=== PATIENT | female | born 1975 | race Caucasian/White ===

== ENCOUNTER → 2017-09-23 | Outpatient (CLI) | payer OTHER ==
--- NOTE | 2017-09-23 15:45 | MAMMOGRAPHY REPORT ---
BILATERAL FIRST EVER DIGITAL SCREENING MAMMOGRAM TOMOSYNTHESIS WITH CAD: 09/23/2017 CLINICAL HISTORY: Routine screening. Baseline exam. TECHNIQUE: Breast tomosynthesis in addition to standard 2D mammography was performed. Current study was also evaluated with a Computer Aided Detection (CAD) system. COMPARISON: No prior exams were available for comparison. BREAST COMPOSITION: There are scattered areas of fibroglandular density in both breasts. FINDINGS: No suspicious masses, calcifications, or areas of architectural distortion are noted in ei ther breast. Scattered bilateral punctate benign-appearing calcifications are noted. IMPRESSION: ACR BI-RADS CATEGORY 2: BENIGN There is no mammographic evidence of malignancy. A 1 year screening mammogram is recommended. The pa tient will receive written notification of the results. Approximately 10% of breast cancers are not detected with mammography. A negative mammographic report should not delay biopsy if a clinically suggestive mass is present. Peyton Machado M.D. ah/:09/23/2017 14:53:26 Attending Technologist: Uma Huerta, [facility] Ticket Printer And Tagger: Nestor ACUÑA(R)(M), [facility] letter sent: Normal 1/2 BI-RADS Code: ACR BI-RADS Category 2: Benign
== END | disposition home or self-care (01) ==
LOC: C.MAMM 14:03
PROVIDERS: ATTEND Obstetrics & Gynecology
DX: Z12.31 Encounter for screening mammogram for malignant neoplasm of breast (principal)

== ENCOUNTER 2019-02-17 10:49 | Inpatient (IN) ==
[2019-02-17] MEDS ORDERED: SODIUM CHLORIDE 0.9% 1000ML 500 ML IV ONE (12:21)
[2019-02-17 13:47] LABS: Hematocrit (blood only) 42.1 % (37-47); Hemoglobin 14.9 g/dL (12.0-16.0); Mean Corpuscular Hgb Conc 35.4 g/dL (32-36); Mean Corpuscular Volume 93.1 fL (80-100); Mean Platelet Volume 9.8 fL (7.4-10.4); Platelet Count 209 K/uL (130-400); RDW Coefficient of Variation 13.7 % (11.5-14.5); RDW Standard Deviation 46.3 fL (36.4-46.3); Red Blood Count 4.52 M/uL (4.2-5.4); White Blood Count 20.58 K/uL (4.8-10.8)
[2019-02-17] MEDS ORDERED: CEFEPIME 2,000 MG/20 ML VIAL IV STA (13:53)
[2019-02-17] MEDS ORDERED: VANCOMYCIN HCL 1,750 MG in SODIUM CHLORIDE 0.9% 500 ML IV ONE (13:53)
[2019-02-17] MEDS ORDERED: SODIUM CHLORIDE 0.9% 1000ML 1,000 ML IV ONE (13:53)
[2019-02-17] MEDS ORDERED: VANCOMYCIN CONSULT ACTIVE PRN (13:53)
[2019-02-17 14:00] LABS: INR 2.6 (0.9-1.1); Partial Thromboplastin Ratio 1.3; Partial Thromboplastin Time 35.6 Seconds (21.0-31.0); Prothrombin Time 25.1 Seconds (9.0-12.0)
--- NOTE | 2019-02-17 14:13 | Ultrasound Report ---
LEFT LOWER EXTREMITY VENOUS DOPPLER HISTORY: left leg swelling erythema COMPARISON STUDY: Venous Doppler 09/29/2018. FINDINGS: No change in the linear echogenic stranding within the left common femoral vein and poplite al vein consistent with chronic DVT. This is nonocclusive. No acute DVT within the left lower extremi ty. IMPRESSION: 1. Stable nonocclusive chronic DVT within the left common femoral and popliteal veins. 2. No acute DVT within the left lower extremity. Electronically signed by: Carroll Eckert M.D. 02/17/2019 2:12 PM
[2019-02-17 14:24] LABS: Basophils # (auto) 0.04 K/uL (0-0.2); Basophils % (auto) 0.2 %; Immature Granulocytes # (auto) 0.09 K/uL (0.00-0.02); Immature Granulocytes % (auto) 0.4 %; Lymphocytes # (auto) 0.35 K/uL (1.2-3.4); Lymphocytes % (auto) 1.7 %; Monocytes # (auto) 0.49 K/uL (0.11-0.59); Monocytes % (auto) 2.4 %; Neutrophils # (auto) 19.61 K/uL (1.4-6.5); Neutrophils % (auto) 95.3 %
[2019-02-17 14:47] LABS: Appearance Urine Clear (Clear); Bilirubin Urine Negative (Negative); Color Urine Yellow; Glucose Urine UA Negative (Negative); Ketones Urine Negative (Negative); Leukocyte Esterase Urine Negative (Negative); Nitrite Urine Negative (Negative); Protein Urine Negative (Negative); Specific Gravity Urine 1.017 (1.000-1.030); Urobilinogen Urine Negative (Negative)
[2019-02-17 14:54] LABS: Calcium 8.4 mg/dl (8.5-10.1); Creatinine Clr Calc Pharmacy 73.1 ml/min; Est GFR (African American) 94.6; Est GFR (Non-African American) 81.6; Potassium 3.5 mmol/L (3.5-5.1)
--- NOTE | 2019-02-17 15:36 | History & Physical Report ---
Date of Service February 17, 2019 Assessment & Plan (1) Cellulitis: Patient start on vancomycin and cefepime this will be maintained in the ER blood cultures will be obtained the area was demarcated with a skin marker, white count will be followed (2) DVT, lower extremity, recurrent: Patient's INR is therapeutic this time she will be maintained on warfarin 5 mg a day this will be a therapy treatment and DVT prevention same time (3) Heart murmur: Patient is a heart murmur heard an echocardiogram will be performed (4) Dyslipidemia: Pravachol be continued (5) PMDD (premenstrual dysphoric disorder): Patient is on Depo-Provera and Topamax plus fluoxetine History of Present Illness Primary Care Provider: Logan Leung MD Patient presents with rapidly accelerated erythema to her left lower leg. 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 Reportedly the patient was in her normal state of health and last evening she cleaned she did not feel good she had some tachypnea she had no fever at home according to her mother and she really has some mild redness on the dorsum of her foot. Her feelings of shortness of breath and not feeling well resolved with her foot erythema spread rapidly now is senior living up her thigh. She has no recent trauma traumatic events there is no significant open areas although she does have lymphedema to that leg. Emergency department initial [id number] lactic acid was elevated to 3.5 but serum lactic acid is 1.7 she does have a white count 20,000 she does not have an anion gap acidosis and her serum bicarbonate is normal with reinforcement of the normal lactic acid therefore I do not believe she suffered some sepsis at this time but rather substantial lower extremity cellulitis intravascularly compromised limb Allergies Allergy/AdvReac Type Severity Reaction Status Date / Time diphenhydramine AdvReac Unknown Unknown Unverified 02/17/19 11:32 Home Medications Home Medications Medication Instructions Recorded Confirmed Type calcium carbonate-vitamin D3 600 1 cap PO QPM cap 04/06/18 02/17/19 History mg (1,500 mg)-400 unit capsule cyanocobalamin (vitamin B-12) 1,000 mcg PO QAM 04/06/18 02/17/19 History 1,000 mcg capsule fluoxetine 40 mg capsule 40 mg PO BID 04/06/18 02/17/19 History multivitamin tablet 1 tab PO QAM 04/06/18 02/17/19 History pravastatin 20 mg tablet 20 mg PO HS tab 04/06/18 02/17/19 History topiramate 50 mg tablet 50 mg PO QAM 04/06/18 02/17/19 History medroxyprogesterone 400 mg/mL 400 mg IM .[id number] ml 08/17/18 02/17/19 History intramuscular suspension warfarin 5 mg tablet 5 mg PO HS #100 tab 12/04/18 02/17/19 Rx Past Med/Surg History Medical History DVT, lower extremity, recurrent (Acute) Deep vein thrombosis (DVT) (Acute) Fatigue (Acute) Pure hypercholesterolemia, unspecified (Acute) Insomnia (Acute) Leg pain (Acute) Leg swelling (Acute) Leukocytosis (Acute) Lymphedema (Acute) Menometrorrhagia (Acute) Rash (Acute) Trisomy 21, Down syndrome (Acute) Unknown whether patient has any health problems (Acute) Venous thrombosis (Acute) Down syndrome Family History Unknown Hypertension Social History Preferred Language: Tajik Communication Ability: Impaired Communication Ability Comment: has deshaun and Current Living Situation: Family Current Living Situation Comment: LIVES WITH SISTER Other Information That Helps Us Care for You: No Feels Safe at Home: Yes Safety Concerns: Feels Safe At This Time Smoking Status: Never smoker Hx Alcohol Use: No Hx Substance Use: No Review of Systems Review of Systems: Unobtainable due to cognitive status Patient's review of systems is garnered through the patient's sister who states that just other than having some mild shortness of breath yesterday she exhibits poor sleep habits and frequent urination which is typical for her she has chronic lower extremity swelling on the left side but usually does not have erythema the remainder of 10 systems were reviewed through the sister and felt to be negative although not sure this is a subjective review of systems because the patient is unable to be verbal enough to communicate an accurate review of systems Physical Exam Physical Exam: The patient appeared typical phenotypic features of Down syndrome Vital signs as documented. No current fever Head exam is unremarkable. normocephalic, atraumatic oropharynx is clear Neck is without jugular venous distension, thyromegaly, or lymphademopathy Lungs are clear to auscultation and percussion. Cardiac exam reveals Rhythm is regular. There is a systolic ejection murmur heard I queried the family with this is ever been worked up they do not recall that it has subsequently an echo will be ordered Abdominal exam reveals normal bowel sounds, no masses, no organomegaly Extremities are discordant with the left leg being always larger than the right is currently very swollen and erythematous is warm there. Skin was inspected including skin between her toes behind her knees without a portal of entry there is one small abrasion which is very small in the anterior tibia but the pts erythema began in the dorsum of the foot, she does have some lymphadenopathy in her left groin is appropriate comparatively to the cellulitis Neurologic exam is A follows commands appropriately, no focal deficits, strength is equal bilateral Skin is warm Dry with exception of left lower extremity with the significant erythema swelling Results & Data Vital Signs (Past 12 Hours) Vital Signs Temp Pulse Pulse Resp BP BP Pulse Ox 02/17/19 14:46 95 H 20 95/66 L 99 02/17/19 13:22 93 H 18 103/66 99 02/17/19 12:11 101 H 18 120/67 99 02/17/19 10:56 36.3 C L 79 16 102/62 97 PG Care Time/CCT Total # of Minutes Spent Total Time Spent with Patient: Total time spent is greater than 50% in coordination of care (as documented) at patient's floor/unit and/or counseling patient:
[2019-02-17] MEDS ORDERED: CONSULT PHARMACY STA (17:48)
[2019-02-17] MEDS ORDERED: NORMOSOL-R 1,000 ML IV SCH (17:48)
[2019-02-17] MEDS ORDERED: ONDANSETRON INJ 2 MG/ML 2 ML VIAL IV PRN (17:48)
[2019-02-17] MEDS ORDERED: ACETAMINOPHEN 325 MG TAB PO PRN (17:48)
[2019-02-17] MEDS: PRAVASTATIN SOD 20 MG TAB PO SCH (20:09)
[2019-02-17] MEDS: CALCIUM 600MG + VIT D 400 IU TAB PO SCH (20:09)
[2019-02-17] MEDS: FLUOXETINE HCL 20 MG CAP PO SCH (20:09)
[2019-02-17] MEDS: WARFARIN SOD 5 MG TAB PO SCH (20:10)
--- NOTE | 2019-02-17 20:11 | Pharmacy Report ---
Pharmacy Abx Initial Consult - Date of Service February 17, 2019 - Pharmacy Dosing Scope Date of Consult: 02/17/19 Consultation requested by: Dr. Nicholson Pharmacy is consulted to initiate vancomycin IV dosing therapy, order appropriate labs and adjust drug dose/frequency. - Subjective The patient is a 43 year old F admitted on 02/17/19 15:28. - Objective Height: 5 ft Weight: 71.9 kg Vital Signs (Past 12hrs): Vital Signs Temp Pulse Pulse Resp BP BP Pulse Ox 02/17/19 17:56 37.0 C 101 H 18 96/62 L 100 02/17/19 17:00 36.8 C 94 H 22 105/73 100 02/17/19 16:09 98 H 21 115/61 98 02/17/19 14:46 95 H 20 95/66 L 99 02/17/19 13:22 93 H 18 103/66 99 02/17/19 12:11 101 H 18 120/67 99 02/17/19 10:56 36.3 C L 79 16 102/62 97 Lab Results (24hrs): Laboratory Tests (24 Hours) 02/17/19 02/17/19 13:13 13:13 WBC 20.58 H Neut # (Auto) 19.61 H Creatinine 0.86 Est Cr Clr Drug Dosing 73.1 Micro Results: 02/17/19 13:21 Aerobic Blood Culture - Pending Blood Anaerobic Blood Culture - Pending 02/17/19 13:13 Aerobic Blood Culture - Pending Blood Anaerobic Blood Culture - Pending - Assessment & Plan Assessment 43 year old F receiving empiric vancomycin and cefepime for a rapidly acceler ated erythema/cellulitis of the left lower leg. Of note, patient has history of chronic recurrent DVTs (anticoagulated with warfarin) - venous doppler impression shows no acute DVT within left lower extremity. Patient denies any traumatic event. Patient afebrile, but slightly tachypneic (HRs in 90s-100s). Pertinent labs (02/17/19): WBC: 20.6, SCr: 0.86 (appears to be baseline SCr), INR currently therapeutic at 2.6 Blood cultures x 2: pending Plan Vancomycin IV * Estimated PK Parameters: Vd 0.6 L/kg, Connor 0.065 hr-1, t1/2 10.6 hr * Loading dose: 1750 mg (24 mg/kg) * Maintenance dose: 1000 mg IV (14 mg/kg) every 14 hours * Goal trough level for cellulitis : 10 to 15 mcg/mL * Trough level ordered for 02/19/19 @0730 prior to the 4th dose of this regimen Cefepime IV * Cefepime 2 g IV q12h appropriate for cellulitis * CrCl of 73 mL/min - no dose reduction necessary Pharmacy will continue to follow and will adjust dose/frequency as necessary. Thank you.
[2019-02-18] MEDS: CEFEPIME 2,000 MG in SYRINGE 7.5 ML IV SCH ×2 (02:57→13:38)
[2019-02-18] MEDS: VANCOMYCIN HCL 1,000 MG in SODIUM CHLORIDE 0.9% 250 ML IV SCH ×2 (03:03→18:13)
[2019-02-18 06:59] LABS: BUN Creatinine Ratio 18.3 (10-20); Creatinine Clr Calc Pharmacy 83.8 ml/min; Est GFR (African American) 111.6; Est GFR (Non-African American) 96.3; Potassium 3.6 mmol/L (3.5-5.1)
[2019-02-18] MEDS: MULTIVITAMIN TAB PO SCH (08:10)
[2019-02-18] MEDS: TOPIRAMATE 50 MG TAB PO SCH (08:10)
[2019-02-18] MEDS: CYANOCOBALAMIN 500 MCG TABLET (VITAMIN B-12) PO SCH (08:10)
[2019-02-18] MEDS: FLUOXETINE HCL 20 MG CAP PO SCH ×2 (08:11→20:29)
[2019-02-18] MEDS ORDERED: PERFLUTREN LIPID MICROSPHERE (DEFINITY) IV ONE (09:46)
--- NOTE | 2019-02-18 10:51 | Emergency Department Note ---
Entered by Nevaeh Mosqueda acting as a scribe for ED Provider Note Name: Maggi Yao Age: 43 Arrives Via: Ambulatory Informant: Sister CC: Left leg redness and warmth HPI: A 43 year old female arrives for evaluation of redness and warmth to her left lower leg that has persisted over the last few days. The sister of the patient states the patient's left leg is always swollen due to lymphedema, but the sister states the redness and warmth are different from baseline. The sister of the patient also notes the patient has been experiencing groin pain and was shaking and short of breath yesterday while outside. The patient also notes a headache. The sister states that the patient has had similar symptoms in the past that once resulted in a clot and once cellulitis. The sister denies the patient has had a fever or any recent falls or injuries. ROS: See above HPI for pertinent positives & negatives. A total of 10 systems reviewed and were otherwise negative. Past Medical History: Lymphedema, DVT (left leg), Leukocytosis, Menometrorrhagia, Trisomy 21 Past Surgical History: No significant medical surgeries. Family History: No known family history. Social History: Lives with sister. Never smoker. Does not drink alcohol. Home Medications: Warfarin, pravastatin, topiramate Allergies Diphenhydramine Physical: Vitals: BP 120/67. Pulse 101. Resp 18. Temp 36.3. O2 Sat 99. Room Air Exam: GENERAL: Patient is well appearing, happy and in no mild distress. EYES: No scleral icterus, unremarkable pupils. ENT: Mucous membranes moist, no nasal congestion. NECK: No masses appreciated, no meningismus, trachea is midline. RESPIRATORY: No dyspnea. Clear to auscultation and equal bilaterally. No wheeze, no rhonchi. CARDIOVASCULAR: Regular rate and rhythm. No murmurs, rubs, gallops appreciated. GASTROINTESTINAL: Abdomen soft, non-tender, no peritonitis. Bowel sounds positive. No masses appreciated. BACK: No midline tenderness, no CVA tenderness EXTREMITIES: Normal motion all extremities, no cyanosis. Swelling of left leg with lymphedema compared to right. Cellulitis and erythema of entire left leg extending posterior/medial up left thigh to middle thigh. NEUROLOGIC: Alert and oriented, no acute motor or sensory deficits, no focal weakness, cranial nerves grossly intact. SKIN: No rash, no jaundice, no diaphoresis. ED Course: Prior Medical Record, Triage/Nursing Notes, Medications, Allergies reviewed by Me Vital Signs: reviewed and remarkable for wnl Labs: Reviewed and remarkable for leukocytosis, elevated poc lactate Interventions: saline lock, nss bolus 2 L IV, Cefepime 2 gm IV, Vanco IV Imaging: Radiology results as stated below per my review and the radiologist's interpretation: LEFT LOWER EXTREMITY VENOUS DOPPLER HISTORY: left leg swelling erythema COMPARISON STUDY: Venous Doppler 09/29/2018. FINDINGS: No change in the linear echogenic stranding within the left common femoral vein and popliteal vein consistent with chronic DVT. This is nonocclusive. No acute DVT within the left lower extremity. IMPRESSION: 1. Stable nonocclusive chronic DVT within the left common femoral and popliteal veins. 2. No acute DVT within the left lower extremity. Electronically signed by: Carroll Eckert M.D. 02/17/2019 2:12 PM EKG: none Course: 1213: Past medical records reviewed. The patient was evaluated in room C6. A complete history and physical exam was performed. 1421: I reevaluated the patient. The patient is no distress and is open to impatient treatment. 1425: I discussed the case with Dr. Nicholson-[facility] Hospitalist. Dr. Nicholson will further evaluate the patient. Blood pressure: Normal. No Referral necessary Disposition: Hospitalization Differentials: Differential diagnosis: Etiologies such as cellulitis, abscess, MRSA infection, DVT, necrotizing fasci itis, dermatitis, drug eruption, as well as others were entertained. Medical Decision Making: Pleasant 43 yr old female with history of cellulitis and dvt left leg in past w ho is currently on coumadin. Arrives for erythema and swelling of left leg. Associated with not feeling well though no fevers, syncope, vomiting, nor AMS. She has normal BP. Exam consistent with cellulitis though US done to verify no other dvt pathology which just confirms old dvt for which she is already being treated. Labs with elevated WCB and initial POC Lactate is elevated. Sepsis treatment initiated with 2 L NSS bolus, broad spectrum abx. Vitals stable. Lab Lactate done which was re-assuring thus further fluid bolus held. She will be admitted for further treatment and evaluation. Stable throughout. Impression: Cellulitis of left lower extremity Sepsis Critical Care Time: I have personally spent greater than 30 minutes of critical care time in the direct management of this patient. Sepsis with left leg cellulitis, elevated lactic acid and leukocytosis. This was a life/limb threatening event. This includes time spent evaluating patient, direct bedside care, chart review, placing orders, interpretation of diagnostic studies, discussion with consultants, patient, and family members, as well as other required patient management activities. This 30 minutes is in excess of all separately billable procedures. The scribe's documentation has been prepared under my direction and personally reviewed by me in its entirety. I confirm that the note above accurately reflects all work, treatment, procedures, and medical decision making performed by me. Bimal Robles MD Impression & Plan Cellulitis of left lower extremity, Sepsis Past Med/Surg History Medical History DVT, lower extremity, recurrent (Acute) Deep vein thrombosis (DVT) (Acute) Fatigue (Acute) Pure hypercholesterolemia, unspecified (Acute) Insomnia (Acute) Leg pain (Acute) Leg swelling (Acute) Leukocytosis (Acute) Lymphedema (Acute) Menometrorrhagia (Acute) Rash (Acute) Trisomy 21, Down syndrome (Acute) Unknown whether patient has any health problems (Acute) Venous thrombosis (Acute) Down syndrome Family History Unknown Hypertension Social History Preferred Language: [place] Communication Ability: Impaired Current Living Situation: Family Current Living Situation Comment: LIVES WITH SISTER Feels Safe at Home: Yes Smoking Status: Never smoker Hx Alcohol Use: No Hx Substance Use: No Results & Data Vital Signs Vital Signs - 24 hr 02/17/19 10:56 02/17/19 12:11 02/17/19 13:22 Temperature 36.3 C L Temperature Source Oral Sepsis Recent Fever Within 48 Hours No Sepsis Action Taken by Nursing No Action Required Pulse Rate 79 Pulse Rate [Finger] 101 H 93 H Pulse Rhythm Regular Pulse Strength Normal Respiratory Rate 16 18 18 Respiratory Effort / Characteristics Non-Labored Non-Labored Spontaneous Respiratory Depth Normal Normal Respiratory Pattern Regular Regular Blood Pressure 102/62 Blood Pressure [Right Arm] 120/67 103/66 Blood Pressure Mean 75 Blood Pressure Mean [Right Arm] 84 78 Blood Pressure Position Sitting Pulse Oximetry 97 99 99 Oxygen Delivery Method Room Air Room Air Room Air 02/17/19 14:46 02/17/19 14:47 Temperature Temperature Source Sepsis Recent Fever Within 48 Hours Sepsis Action Taken by Nursing Pulse Rate Pulse Rate [Finger] 95 H Pulse Rhythm Pulse Strength Respiratory Rate 20 Respiratory Effort / Characteristics Non-Labored Spontaneous Respiratory Depth Normal Respiratory Pattern Regular Blood Pressure Blood Pressure [Right Arm] 95/66 L Blood Pressure Mean Blood Pressure Mean [Right Arm] 75 Blood Pressure Position Pulse Oximetry 99 Oxygen Delivery Method Room Air Room Air Laboratory Data Result diagrams: 02/17/19 13:13 02/18/19 05:41 Lab Results 02/17/19 02/17/19 02/17/19 Range/Units 13:13 13:13 13:13 WBC 20.58 H (4.8-10.8) K/uL RBC 4.52 (4.2-5.4) M/uL Hgb 14.9 (12.0-16.0) g/dL Hct 42.1 (37-47) % MCV 93.1 (80-100) fL MCH 33.0 (25-34) pg MCHC 35.4 (32-36) g/dL RDW Std Deviation 46.3 (36.4-46.3) fL RDW Coeff of Jordan 13.7 (11.5-14.5) % Plt Count 209 (130-400) K/uL MPV 9.8 (7.4-10.4) fL Immature Gran % (Auto) 0.4 % Neut % (Auto) 95.3 % Lymph % (Auto) 1.7 % [place] % (Auto) 2.4 % Eos % (Auto) 0.0 % Baso % (Auto) 0.2 % Immature Gran # (Auto) 0.09 H (0.00-0.02) K/uL Neut # (Auto) 19.61 H (1.4-6.5) K/uL Lymph # (Auto) 0.35 L (1.2-3.4) K/uL [place] # (Auto) 0.49 (0.11-0.59) K/uL Eos # (Auto) 0.00 (0-0.5) K/uL Baso # (Auto) 0.04 (0-0.2) K/uL PT 25.1 H (9.0-12.0) Seconds INR 2.6 H (0.9-1.1) APTT 35.6 H (21.0-31.0) Seconds PTT Ratio 1.3 Sodium 140 (136-145) mmol/L Potassium 3.5 (3.5-5.1) mmol/L Chloride 110 H (98-107) mmol/L Carbon Dioxide 26 (21-32) mmol/L Anion Gap 4.0 (3-11) BUN 19 H (7-18) mg/dl Creatinine 0.86 (0.6-1.2) mg/dl Est Cr Clr Drug Dosing 73.1 ml/min Est GFR ( Amer) 94.6 Est GFR (Non-Af Amer) 81.6 BUN/Creatinine Ratio 18.0 (10-20) Glucose 80 (70-99) mg/dl POC Lactic Acid Sahil (0.90-1.70) mmol/L Lactate (0.4-2.0) mmol/L Calcium 8.4 L (8.5-10.1) mg/dl Urine Color Urine Appearance (Clear) Urine pH (4.5-7.5) Ur Specific [place] (1.000-1.030) Urine Protein (Negative) Urine Glucose (UA) (Negative) Urine Ketones (Negative) Urine Blood (Negative) Urine Nitrite (Negative) Urine Bilirubin (Negative) Urine Urobilinogen (Negative) Ur Leukocyte Esterase (Negative) 02/17/19 02/17/19 02/17/19 Range/Units 13:36 14:10 14:25 WBC (4.8-10.8) K/uL RBC (4.2-5.4) M/uL Hgb (12.0-16.0) g/dL Hct (37-47) % MCV (80-100) fL MCH (25-34) pg MCHC (32-36) g/dL RDW Std Deviation (36.4-46.3) fL RDW Coeff of Jordan (11.5-14.5) % Plt Count (130-400) K/uL MPV (7.4-10.4) fL Immature Gran % (Auto) % Neut % (Auto) % Lymph % (Auto) % [place] % (Auto) % Eos % (Auto) % Baso % (Auto) % Immature Gran # (Auto) (0.00-0.02) K/uL Neut # (Auto) (1.4-6.5) K/uL Lymph # (Auto) (1.2-3.4) K/uL [place] # (Auto) (0.11-0.59) K/uL Eos # (Auto) (0-0.5) K/uL Baso # (Auto) (0-0.2) K/uL PT (9.0-12.0) Seconds INR (0.9-1.1) APTT (21.0-31.0) Seconds PTT Ratio Sodium (136-145) mmol/L Potassium (3.5-5.1) mmol/L Chloride (98-107) mmol/L Carbon Dioxide (21-32) mmol/L Anion Gap (3-11) BUN (7-18) mg/dl Creatinine (0.6-1.2) mg/dl Est Cr Clr Drug Dosing ml/min Est GFR ( Amer) Est GFR (Non-Af Amer) BUN/Creatinine Ratio (10-20) Glucose (70-99) mg/dl POC Lactic Acid Sahil 3.53 H (0.90-1.70) mmol/L Lactate 1.7 (0.4-2.0) mmol/L Calcium (8.5-10.1) mg/dl Urine Color Yellow Urine Appearance Clear (Clear) Urine pH 7.0 (4.5-7.5) Ur Specific [place] 1.017 (1.000-1.030) Urine Protein Negative (Negative) Urine Glucose (UA) Negative (Negative) Urine Ketones Negative (Negative) Urine Blood Negative (Negative) Urine Nitrite Negative (Negative) Urine Bilirubin Negative (Negative) Urine Urobilinogen Negative (Negative) Ur Leukocyte Esterase Negative (Negative) Administered Medications Cyanocobalamin (Vitamin B-12) 1,000 mcg PO QAM [facility] Stop: 03/20/19 08:59 Last Admin: 02/18/19 08:10 Dose: 1,000 mcg Documented by: [id number] Fluoxetine HCl (Prozac) 40 mg PO BID [facility] Stop: 03/19/19 20:59 Last Admin: 02/18/19 08:11 Dose: 40 mg Documented by: [id number] Admin: 02/17/19 20:09 Dose: 40 mg Documented by: [id number] Cefepime HCl 2,000 mg/ Syringe 20 mls @ 5.5 mls/min IV Q12H [facility]; Protocol Stop: 02/28/19 01:59 Last Admin: 02/18/19 02:57 Dose: 5.5 mls/min Documented by: [id number] Vancomycin HCl 1,000 mg/ (Sodium Chloride) 270 mls @ 125 mls/hr IV Q14H [facility]; Protocol Stop: 02/28/19 03:59 Last Infusion: 02/18/19 05:31 Dose: 0 mls/hr Documented by: [id number] Admin: 02/18/19 03:03 Dose: 125 mls/hr Documented by: [id number] Multivitamins (Multivitamin Tab) 1 tab PO QAM [place] Stop: 03/20/19 08:59 Last Admin: 02/18/19 08:10 Dose: 1 tab Documented by: [id number] Multivitamins/Minerals (Caltrate Plus) 1 tab PO QPM [facility] Stop: 03/19/19 20:59 Last Admin: 02/17/19 20:09 Dose: 1 tab Documented by: [id number] Pravastatin Sodium (Pravachol) 20 mg PO HS [facility] Stop: 03/19/19 20:59 Last Admin: 02/17/19 20:09 Dose: 20 mg Documented by: [id number] Topiramate (Topamax) 50 mg PO QAM [facility] Stop: 03/20/19 08:59 Last Admin: 02/18/19 08:10 Dose: 50 mg Documented by: [id number] Warfarin Sodium (Coumadin) 5 mg PO DAILY@1600 [facility] Stop: 03/19/19 20:59 Last Admin: 02/17/19 20:10 Dose: 5 mg Documented by: [id number] Discontinued Medications Sodium Chloride (Nss 1000ml) 500 mls @ 999 mls/hr IV .Q31M [facility] Stop: 02/17/19 12:51 Last Infusion: 02/17/19 13:58 Dose: 0 mls/hr Documented by: [id number] Admin: 02/17/19 13:27 Dose: 999 mls/hr Documented by: [id number] Cefepime HCl (Maxipime) 2,000 mg in 20 mls @ 5 mls/min IV NOW [facility]; Protocol Stop: 02/17/19 13:56 Last Admin: 02/17/19 14:37 Dose: 5 mls/min Documented by: [id number] Sodium Chloride (Nss 1000ml) 1,000 mls @ 999 mls/hr IV .Q1H1M [facility] Stop: 02/17/19 14:53 Last Infusion: 02/17/19 15:43 Dose: 0 mls/hr Documented by: [id number] Admin: 02/17/19 14:42 Dose: 999 mls/hr Documented by: [id number] Vancomycin HCl 1,750 mg/ (Sodium Chloride) 535 mls @ 200 mls/hr IV NOW [facility]; Protocol Stop: 02/17/19 16:33 Last Infusion: 02/17/19 17:23 Dose: 0 mls/hr Documented by: [id number] Admin: 02/17/19 14:42 Dose: 200 mls/hr Documented by: [id number] Parenteral Electrolytes (Normosol-R) 1,000 mls @ 80 mls/hr IV .[id number] [place] Stop: 02/18/19 06:17 Last Infusion: 02/18/19 05:40 Dose: 0 mls/hr Documented by: [id number] Admin: 02/17/19 18:21 Dose: 80 mls/hr Documented by: [id number] Perflutren Lipid Microsphere (Definity) 2 ml IV ONCE [facility] Stop: 02/18/19 09:47 Last Admin: 02/18/19 09:46 Dose: 2 ml Documented by: [id number] Discharge Plan Visit Data *Final* Discharge Date/Time: 02/17/19 17:42 Chief Complaint: Swelling/Edema to Extremity Stated Complaint: LEFT LEG SWELLING, RED, WARM ED Provider: Bimal Robles Discharge Problem: Cellulitis of left lower extremity, Sepsis Patient Disposition: Admitted As Inpatient Discharge Instructions Interventions: ED Discharge Assessment Last Done: 02/17/19 17:42 Discharge Problem: Sepsis Qualifiers: Sepsis type: sepsis due to unspecified organism Qualified Code(s): A41.9 - Sepsis, unspecified organism The scribe's documentation has been prepared under my direction and personally reviewed by me in its entirety. I confirm that the note above accurately reflects all work, treatment, procedures, and medical decision making performed by me.
--- NOTE | 2019-02-18 14:16 | Hospitalist Progress Note ---
Date of Service February 18, 2019 Assessment & Plan (1) Cellulitis: Remains on on vancomycin and cefepime pending results of blood cultures. (2) DVT, lower extremity, recurrent: Patient will be maintained on warfarin 5 mg a day this will be a therapy t reatment and DVT prevention same time (3) Heart murmur: Patient is a heart murmu cardia Nikita is a significant valvular or congenital dysfunction (4) Dyslipidemia: Pravachol be continued (5) PMDD (premenstrual dysphoric disorder): Patient is on Depo-Provera and Topamax plus fluoxetine Subjective Patient appears to be no active distress her erythema significantly reduced as well as her swelling and induration of her left lower extremity. Her sister is at the bedside was updated on plan Review of Systems Review of Systems: Unobtainable due to cognitive status Generally looks like she feels less distressed Physical Exam Physical Exam: The patient appeared well nourished and normally developed. Vital signs as documented. Head exam is unremarkable. normocephalic, atraumatic Neck is without jugular venous distension, thyromegaly, or lymphademopathy Lungs are clear to auscultation and percussion. Cardiac exam reveals Rhythm is regular. First and second heart sounds normal. Abdominal exam reveals normal bowel sounds, no masses, no organomegaly Extremitie left lower extremity is erythematous and swollen she typically is lymphedema this is much less swollen and erythematous and was on admission, the erythema has receded from the line of demarcation drawn last evening Neurologic exam is A&Ox3, no focal deficits, strength is equal bilateral Psychologically seems neither anxious or depressed Skin is warm Dry with exception of her left lower extremity Results & Data Vital Signs (Past 12 Hours) Vital Signs Temp Pulse Resp BP Pulse Ox 02/18/19 09:01 36.9 C 95 H 20 112/71 98 PG Care Time/CCT Total # of Minutes Spent Total Time Spent with Patient: Total time spent is greater than 50% in coordination of care (as documented) at patient's floor/unit and/or counseling patient:
[2019-02-18] MEDS: WARFARIN SOD 5 MG TAB PO SCH (15:25)
[2019-02-18] MEDS: PRAVASTATIN SOD 20 MG TAB PO SCH (20:29)
[2019-02-18] MEDS: CALCIUM 600MG + VIT D 400 IU TAB PO SCH (20:29)
[2019-02-19] MEDS: CEFEPIME 2,000 MG in SYRINGE 7.5 ML IV SCH (02:08)
[2019-02-19] MEDS ORDERED: VANCOMYCIN TROUGH ONE (07:30)
[2019-02-19 07:46] LABS: Hematocrit (blood only) 33.3 % (37-47); Hemoglobin 11.6 g/dL (12.0-16.0); Mean Corpuscular Hgb Conc 34.8 g/dL (32-36); Mean Corpuscular Volume 92.2 fL (80-100); Mean Platelet Volume 9.4 fL (7.4-10.4); Platelet Count 175 K/uL (130-400); RDW Coefficient of Variation 13.8 % (11.5-14.5); RDW Standard Deviation 46.9 fL (36.4-46.3); Red Blood Count 3.61 M/uL (4.2-5.4); White Blood Count 9.27 K/uL (4.8-10.8)
[2019-02-19 07:52] LABS: INR 2.6 (0.9-1.1); Prothrombin Time 25.1 Seconds (9.0-12.0)
[2019-02-19] MEDS: CYANOCOBALAMIN 500 MCG TABLET (VITAMIN B-12) PO SCH (08:05)
[2019-02-19] MEDS: TOPIRAMATE 50 MG TAB PO SCH (08:05)
[2019-02-19] MEDS: FLUOXETINE HCL 20 MG CAP PO SCH (08:05)
[2019-02-19] MEDS: MULTIVITAMIN TAB PO SCH (08:05)
[2019-02-19 08:08] LABS: BUN Creatinine Ratio 18.2 (10-20); Calcium 8.2 mg/dl (8.5-10.1); Creatinine Clr Calc Pharmacy 86.1 ml/min; Est GFR (African American) 115.3; Est GFR (Non-African American) 99.5; Potassium 3.5 mmol/L (3.5-5.1)
[2019-02-19] MEDS: VANCOMYCIN HCL 1,000 MG in SODIUM CHLORIDE 0.9% 250 ML IV SCH (08:12)
--- NOTE | 2019-02-19 08:45 | Pharmacy Report ---
Pharmacy Abx Dose Short Note - Date of Service February 19, 2019 - Assessment & Plan Assessment 43 year old F receiving vancomycin/ cefepime for treatment of SSTI which has markedly improved since admission. Day # 3/10 of antimicrobial therapy. Plan Vancomycin * Trough level of 9.3 mcg/mL is subtherapeutic. * Change to 1000 mg IV every 12 hours * Goal trough level for cellulitis : 10 to 15 mcg/mL * Trough ordered for: 02/21/19 Pharmacy will continue to follow and will adjust dose/frequency as necessary. Thank you.
--- NOTE | 2019-02-19 12:47 | Discharge Summary ---
Date of Service February 19, 2019 Admission HPI Per Admitting Provider Patient presents with rapidly accelerated erythema to her left lower leg. 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 Reportedly the patient was in her normal state of health and last evening she cleaned she did not feel good she had some tachypnea she had no fever at home according to her mother and she really has some mild redness on the dorsum of her foot. Her feelings of shortness of breath and not feeling well resolved with her foot erythema spread rapidly now is long term up her thigh. She has no recent trauma traumatic events there is no significant open areas although she does have lymphedema to that leg. Emergency department initial [id number] lactic acid was elevated to 3.5 but serum lactic acid is 1.7 she does have a white count 20,000 she does not have an anion gap acidosis and her serum bicarbonate is normal with reinforcement of the normal lactic acid therefore I do not believe she suffered some sepsis at this time but rather substantial lower extremity cellulitis intravascularly compromised limb Principal Diagnosis Left lower extremity cellulitis Discharge Exam Constitutional well developed and average body habitus Eyes no conjunctival abnormality and no scleral abnormality Neck normal visual inspection and trachea midline Respiratory normal respiratory effort; no respiratory distress Auscultation: lungs clear to auscultation bilaterally Cardiovascular RRR, no murmur, no edema Gastrointestinal (Abdomen) normal bowel sounds, soft, nontender, no hepatosplenomegaly Skin Skin erythema zone was completely resolved she remains with lymphedema which is chronic for her Discharge Data Allergies Allergy/AdvReac Type Severity Reaction Status Date / Time diphenhydramine AdvReac Unknown Unknown Unverified 02/17/19 11:32 Consultations 02/17/19 14:24 ED Decision to Admit Stat Ordered Studies 02/17/19 12:22 US venous doppler LE LT Stat Hospital Course (1) Cellulitis: Patient placed on Augmentin twice daily for 5 more days blood cultures are negative and some discharge (2) DVT, lower extremity, recurrent: Patient will be maintained on warfarin 5 mg a day this will be a therapy treatment and DVT prevention same time, her INR is 2.6 we are avoiding Bactrim and other medicines that may interfere with her warfarin dosing (3) Heart murmur: Patient is a heart murmur echocardiogram is without significant valvular or congenital abnormalities (4) Dyslipidemia: Pravachol be continued (5) PMDD (premenstrual dysphoric disorder): Patient is on Depo-Provera and Topamax plus fluoxetine Total Time Total Time Spent Total Time Spent (In Minutes): Less than 30 minutes was spent discharging this patient Discharge Plan Discharge Items Patient Disposition: Home - Self-Care Reason For Visit: CELULITIS Discharge Diagnosis: skin infection of leg Discharge Goals: Decrease discomfort and Diagnostic testing Activity: Resume your previous activity Activity Comment: elevate legs as much as you can, especially when laying down Non-emergency contact: Primary Care Provider Call non-emergency contact if: you have any medication questions Follow-up/Referrals: Logan Leung III, MD [Primary Care Provider] - Diet: Regular Addtl Provider Instructions: please watch salt intake as it may worsen swelling complete antibiotics this week and follow up with Dr Leung Prescriptions: New amoxicillin-pot clavulanate 875-125 mg tablet 1 tab PO BID Qty: 10 RF: 0 Continued cyanocobalamin (vitamin B-12) 1,000 mcg capsule 1,000 mcg PO QAM RF: 0 fluoxetine 40 mg capsule 40 mg PO BID RF: 0 pravastatin [Pravachol] 20 mg tablet 20 mg PO HS RF: 0 multivitamin tablet 1 tab PO QAM RF: 0 topiramate [Topamax] 50 mg tablet 50 mg PO QAM RF: 0 calcium carbonate-vitamin D3 600 mg(1,500mg) -400 unit capsule 1 cap PO QPM RF: 0 medroxyprogesterone [Depo-Provera] 400 mg/mL suspension 400 mg IM .[id number] RF: 0 warfarin 5 mg tablet 5 mg PO HS Qty: 100 RF: 0 Stand-Alone Forms: [facility] Discharge Orders: Discharge Order (Routine); Ordered 02/19/19 Ordered By: Chandrakant Nicholson Admission Data Admit Date/Time: 02/17/19 15:28 Attending Provider: Chandrakant Nicholson Admit Provider: Chandrakant Nicholson Primary Care Provider: Logan Leung III Other Providers: Chandrakant Nicholson Service: Medical
[2019-02-19] MEDS ORDERED: VANCOMYCIN HCL 1,000 MG in SODIUM CHLORIDE 0.9% 250 ML IV SCH (18:00)
[2019-02-21] MEDS ORDERED: VANCOMYCIN TROUGH ONE (05:30)
[2019-02-28] MEDS ORDERED: MEDROXYPROGESTERONE ACETATE 150 MG/ML VIAL IM SCH (09:00)
== END 2019-02-19 13:26 | disposition home or self-care (01) | DRG 300 ==
LOC: ED 10:49 → 4W 15:28